=== PATIENT | female | born 1995 | race African-American/Black ===

== ENCOUNTER 2020-12-01 19:37 | Emergency (ER) | payer MEDICAID ==
[~2020-12-01] VITALS: Ht 170.2 cm; Wt 83.0 kg
[2020-12-01] MEDS ORDERED: LIDOCAINE HCL 1% 20ML VIAL (Pyxis) INJ INFIL ONE (21:00)
[2020-12-01] MEDS ORDERED: IBUPROFEN 600MG TABLET PO ONE (21:30)
[2020-12-01] MEDS ORDERED: AMOX-424 MT (21:30)
[2020-12-01] MEDS ORDERED: IBUP-2029 MT (21:31)
[2020-12-01 22:58] VITALS: BP 142/85
== END 2020-12-01 22:58 | disposition home or self-care (01) ==
LOC: ER 19:37
DX: S01.81XA Laceration without foreign body of other part of head, initial encounter (principal); S61.250A Open bite of right index finger without damage to nail, initial encounter; S61.252A Open bite of right middle finger without damage to nail, initial encounter; F17.200 Nicotine dependence, unspecified, uncomplicated; Z79.899 Other long term (current) drug therapy; Y04.0XXA Assault by unarmed brawl or fight, initial encounter; Y93.89 Activity, other specified; Y92.89 Other specified places as the place of occurrence of the external cause; Y99.8 Other external cause status
CPT/HCPCS: 12001; 81025; 99282; J3490; Z7610

== ENCOUNTER 2020-12-09 09:00 | Emergency (ER) | payer MEDICAID, OTHER ==
[~2020-12-09] VITALS: Ht 167.6 cm; Wt 83.0 kg
[~2020-12-09 09:00] MED LIST: AMOX-424 MT; IBUP-2029 MT
[2020-12-09 09:12] VITALS: BP 118/75
[2020-12-09] MEDS ORDERED: NEOM10DR11 RIGHT EAR (09:51)
[2020-12-09] MEDS ORDERED: TETANUS, DIPHTHERIA, PERTUSSIS VAC/PF 0.5ML (>7YR OLD) IM ONE (10:30)
== END 2020-12-09 10:30 | disposition home or self-care (01) ==
LOC: ER 09:00
DX: Z48.02 Encounter for removal of sutures (principal); S01.411A Laceration without foreign body of right cheek and temporomandibular area, initial encounter; S09.91XA Unspecified injury of ear, initial encounter; Y07.03 Male partner, perpetrator of maltreatment and neglect; Y04.2XXA Assault by strike against or bumped into by another person, initial encounter; Y93.89 Activity, other specified; Y92.89 Other specified places as the place of occurrence of the external cause; Z23 Encounter for immunization
CPT/HCPCS: 90471; 90715; 99283; Z7610